=== PATIENT | male | born 1985 | race Asian ===

== ENCOUNTER 2018-06-14 11:12 | Inpatient (IN) | payer OTHER ==
[~2018-06-14] VITALS: Ht 170.2 cm; Wt 68.9 kg
[2018-06-14] VITALS (14 sets, daily range): BP systolic 98–123; BP diastolic 53–80
[2018-06-14] MEDS ORDERED: LORazepam 2MG/ML-1ML VIAL ONE ×2 (11:41→12:04)
[2018-06-14 12:01] LABS: Alanine Aminotransferase 64 U/L (16-61); Albumin 5.2 g/dL (3.4-5.0); Anion Gap 23 (5-15); Aspartate Aminotransferase 84 U/L (15-37); BUN/Creatinine Ratio 9.8; Blood Alcohol < 3.0 mg/dL (0-5); Blood Urea Nitrogen 31 mg/dL (7-18); Calcium 10.3 mg/dL (8.5-10.1); Carbon Dioxide 17 mmol/L (21-32); Chloride 100 mmol/L (98-107); GFR African American 29 mL/min; GFR Non-African American 24 mL/min; Glucose 179 mg/dL (74-106); Sodium 140 mmol/L (136-145)
[2018-06-14 12:03] LABS: Urine Bacteria NONE SEEN /hpf (None Seen); Urine Blood Negative /uL (Negative); Urine Specific Gravity 1.024 (1.001-1.035); Urine WBC 1 /hpf (0 - 3)
[2018-06-14 12:04] LABS: Alcohol, Urine < 3.0 mg/dL (0-5); Amphetamine Screen, Urine NEGATIVE (NEGATIVE); Barbiturate Scree,Urine NEGATIVE (NEGATIVE); Benzodiazephine Screen, Urine NEGATIVE (NEGATIVE); Cannabinoid Screen, Urine NEGATIVE (NEGATIVE); Cocaine Screen, Urine NEGATIVE (NEGATIVE); Opiate Scree,Urine NEGATIVE (NEGATIVE); Phencyclidine Screen, Urine NEGATIVE (NEGATIVE)
[2018-06-14 12:05] LABS: Alkaline Phosphatase 92 U/L (45-117); Bilirubin, Total 0.7 mg/dL (0.2-1.0); Creatine Kinase IFCC 962 U/L (39-308); Hematocrit 54.2 % (41.0-53.0); Hemoglobin 17.9 g/dL (13.5-17.5); Mean Corpuscular Hgb Conc. 33.1 g/dL (32.0-36.0); Mean Corpuscular Volume 90.6 fL (80.0-100.0); Platelet Count (auto) 223 10^3/uL (140-450); Red Blood Cells 5.98 10^6/uL (4.5-5.90); Red Cell Distribution Width 15.5 % (11.8-14.3); Total Protein 9.2 g/dL (6.4-8.2); White Blood Cell 25.1 10^3/uL (4.4-10.8)
[2018-06-14 12:09] LABS: Basophils % (manual) 0 (0.0-2.0); Blast Cells 0; Metamyelocytes % 0; Myelocytes % 0; Promyelocytes % 0; Reactive Lymphocytes 0
[2018-06-14 12:25] LABS: Potassium 6.3 mmol/L (3.5-5.1)
[2018-06-14 12:43] LABS: Salicylate < 1.7 mg/dL (2.8-20.0)
[2018-06-14 12:44] LABS: Acetaminophen < 2.0 ug/mL (10-30)
[2018-06-14] MEDS ORDERED: SODIUM CHLORIDE 0.9% 2,000 ML IV ONE (12:45)
[2018-06-14] MEDS ORDERED: D5W/SOD CHLO 0.9% 1,000 ML IV ONE (12:45)
[2018-06-14] MEDS ORDERED: InsuLIN REG 1unit/0.01ml Soln (100units/ml) IV ONE (12:45)
[2018-06-14] MEDS ORDERED: FUROSEMIDE 40 MG/4 ML VIAL IV ONE (12:45)
[2018-06-14] MEDS ORDERED: SODIUM BICARBONATE 8.4 % INJ 50ML VIAL IV ONE (12:45)
[2018-06-14 14:02] LABS: Band Neutrophils % (manual) 3; Eosinophils % (manual) 1 (0-7); Lymphocytes % (manual) 11 (10.0-50.0); Monocytes % (manual) 3 (0-12)
[2018-06-14] MEDS ORDERED: LORazepam 2MG/ML-1ML VIAL IV ONE ×5 (14:45)
[2018-06-14] MEDS ORDERED: SODIUM CHLORIDE 0.9% 1,000 ML IV ONE ×2 (14:45→16:45)
[2018-06-14] MEDS ORDERED: LORazepam 2MG/ML-1ML VIAL IV PRN (16:30)
[2018-06-14] MEDS ORDERED: cefTRIAXone 1GM/50ML D5W 50 ML IV ONE (16:30)
[2018-06-14] MEDS ORDERED: SODIUM CHLORIDE 0.9% 1,000 ML IV SCH (16:30)
[2018-06-14] MEDS ORDERED: NITROGLYCERIN 0.4 MG SL TAB SL PRN (16:30)
[2018-06-14] MEDS ORDERED: PROMETHAZINE HCL 25 MG/ML 1ML IV PRN (16:30)
[2018-06-14] MEDS ORDERED: MORPHINE SULFATE 4 MG/ML SYR/VIAL IV PRN ×3 (16:30)
[2018-06-14 17:27] LABS: Albumin 4.2 g/dL (3.4-5.0); BUN/Creatinine Ratio 11.2; Calcium 8.3 mg/dL (8.5-10.1); Potassium 3.1 mmol/L (3.5-5.1)
[2018-06-14 17:29] LABS: INR 1.52 (0.9-1.15); Partial Thromboplastin Time 27.7 sec (23.78-33.04); Prothrombin Time 15.9 sec (9.27-12.13)
[2018-06-14] MEDS ORDERED: SODIUM BICARBONATE 50ML VIAL 50 ML in D5W/SOD CHL 0.45% 1,000 ML IV SCH (17:30)
[2018-06-14 17:31] LABS: Bilirubin, Total 0.6 mg/dL (0.2-1.0); Total Protein 7.6 g/dL (6.4-8.2)
[2018-06-14 17:34] LABS: Amylase 586 U/L (25-115); Lipase 441 U/L (73-393)
[2018-06-14 19:14] LABS: Basophils # (auto) 0 uL; Basophils % (auto) 0.1 % (0.0-2.0); Eosinophils # (auto) 0 uL; Eosinophils % (auto) 0.1 % (0.0-7.0); Hematocrit 51.1 % (41.0-53.0); Hemoglobin 17.1 g/dL (13.5-17.5); Lymphocytes # (auto) 0.3 uL; Mean Corpuscular Hemoglobin 30.3 pg (28.0-32.0); Mean Corpuscular Hgb Conc. 33.5 g/dL (32.0-36.0); Mean Corpuscular Volume 90.3 fL (80.0-100.0); Monocytes # (auto) 2.1 uL; Neutrophils # (auto) 27.5 uL; Neutrophils % (auto) 91.8 % (37.0-80.0); Nucleated Red Blood Cells % 0.1 %; Platelet Count (auto) 99 10^3/uL (140-450); Red Blood Cells 5.65 10^6/uL (4.5-5.90); Red Cell Distribution Width 15.8 % (11.8-14.3)
[2018-06-14] MEDS: SOD CHL 0.9%/ KCL 20MEQ 1,000 ML IV SCH (22:23)
[2018-06-14] MEDS: LINEZOLID 600MG/300ML 300 ML IV SCH (22:53)
[2018-06-15] VITALS (78 sets, daily range): BP systolic 107–153; BP diastolic 45–117
[2018-06-15] MEDS: metroNIDAZOLE 500MG/100ML 100 ML IV SCH ×4 (00:58→22:14)
[2018-06-15] MEDS: PIPERACILLIN-TAZOB 2.25GM 50 ML IV SCH ×2 (02:44→07:49)
[2018-06-15] MEDS ORDERED: ACETYLCYSTEINE 200MG/ML IV SOL 10,200 MG in D5W 5% 250 ML IV ONE (04:00)
[2018-06-15] MEDS: SOD CHL 0.9%/ KCL 20MEQ 1,000 ML IV SCH ×2 (04:05→07:49)
[2018-06-15 04:09] LABS: Basophils # (auto) 0.1 uL; Basophils % (auto) 0.2 % (0.0-2.0); Eosinophils # (auto) 0 uL; Hematocrit 48.3 % (41.0-53.0); Hemoglobin 16.7 g/dL (13.5-17.5); Lymphocytes # (auto) 0.6 uL; Lymphocytes % (auto) 2.1 % (10.0-50.0); Mean Corpuscular Hemoglobin 30.4 pg (28.0-32.0); Mean Corpuscular Hgb Conc. 34.5 g/dL (32.0-36.0); Mean Corpuscular Volume 88.3 fL (80.0-100.0); Monocytes % (auto) 6.9 % (0.0-12.0); Neutrophils # (auto) 26.3 uL; Neutrophils % (auto) 90.8 % (37.0-80.0); Platelet Count (auto) 73 10^3/uL (140-450); Red Blood Cells 5.48 10^6/uL (4.5-5.90); Red Cell Distribution Width 15.7 % (11.8-14.3); White Blood Cell 28.9 10^3/uL (4.4-10.8)
[2018-06-15] MEDS ORDERED: ACETYLCYSTEINE 200MG/ML IV SOLN 30ML IV ONE ×3 (04:15→06:04)
[2018-06-15 04:26] LABS: Lactic Acid w/Reflex 2.3 mmol/L (0.4-2.0)
[2018-06-15 04:27] LABS: Albumin 3.8 g/dL (3.4-5.0); BUN/Creatinine Ratio 10.1; Calcium 7.8 mg/dL (8.5-10.1); Potassium 3.4 mmol/L (3.5-5.1)
[2018-06-15 04:30] LABS: Total Protein 6.7 g/dL (6.4-8.2)
[2018-06-15] MEDS ORDERED: ACETYLCYSTEINE 200MG/ML IV SOL 3,400 MG in D5W 5% 500 ML IV ONE (05:00)
[2018-06-15] MEDS ORDERED: cefTRIAXone 1GM/50ML D5W 50 ML IV SCH (09:00)
[2018-06-15] MEDS: LINEZOLID 600MG/300ML 300 ML IV SCH (09:00)
[2018-06-15] MEDS ORDERED: ACETYLCYSTEINE 200MG/ML IV SOL 6,800 MG in D5W 5% 1,000 ML IV ONE (09:00)
[2018-06-15] MEDS ORDERED: ENOXAPARIN SOD 30 MG/0.3 ML SYRINGE SC SCH (10:00)
[2018-06-15] MEDS ORDERED: POTASSIUM CHL 20MEQ/100ML 200 ML IV ONE (11:26)
[2018-06-15] MEDS: PANTOPRAZOLE 40 MG/10 ML VIAL IV SCH (11:51)
[2018-06-15] MEDS: D5W IV SCH ×3 (11:51→20:29)
[2018-06-15] MEDS: SODIUM BICARBONATE IV SCH ×3 (11:51→20:29)
[2018-06-15] MEDS: POTASSIUM CHLORIDE IV SCH ×3 (11:51→20:29)
[2018-06-15] MEDS ORDERED: VANCOMYCIN PER PHARMACY 0 MG IV SCH (12:15)
[2018-06-15] MEDS ORDERED: VANCOMYCIN 1GM/250ML 250 ML IV ONE (13:00)
[2018-06-15 23:07] LABS: BUN/Creatinine Ratio 7.3; Calcium 6.9 mg/dL (8.5-10.1); Potassium 3.4 mmol/L (3.5-5.1)
[2018-06-15] MEDS: POTASSIUM CHL 20 Meq TABLET PO SCH (23:47)
[2018-06-16] VITALS (39 sets, daily range): BP systolic 121–145; BP diastolic 67–98
[2018-06-16] MEDS: POTASSIUM CHL 20 Meq TABLET PO SCH ×2 (02:00→06:00)
[2018-06-16 02:52] LABS: INR 2.91 (0.9-1.15); Prothrombin Time 29.3 sec (9.27-12.13)
[2018-06-16 02:54] LABS: Albumin 2.6 g/dL (3.4-5.0); Anion Gap 14 (5-15); BUN/Creatinine Ratio 6.7; Blood Urea Nitrogen 35 mg/dL (7-18); Calcium 6.7 mg/dL (8.5-10.1); Carbon Dioxide 16 mmol/L (21-32); Chloride 110 mmol/L (98-107); GFR African American 17 mL/min; GFR Non-African American 14 mL/min; Glucose 131 mg/dL (74-106); Potassium 3.6 mmol/L (3.5-5.1); Sodium 140 mmol/L (136-145)
[2018-06-16 02:57] LABS: Alkaline Phosphatase 75 U/L (45-117); Bilirubin, Total 2.7 mg/dL (0.2-1.0); Total Protein 5.1 g/dL (6.4-8.2)
[2018-06-16 03:11] LABS: Alanine Aminotransferase 2137 U/L (16-61); Aspartate Aminotransferase 3161 U/L (15-37)
[2018-06-16] MEDS ORDERED: ACETYLCYSTEINE 200MG/ML IV SOLN 30ML IV ONE (03:18)
[2018-06-16] MEDS ORDERED: ACETYLCYSTEINE 200MG/ML IV SOL 6,800 MG in D5W 5% 1,000 ML IV SCH (03:30)
[2018-06-16] MEDS: D5W IV SCH (03:40)
[2018-06-16] MEDS: POTASSIUM CHLORIDE IV SCH (03:40)
[2018-06-16] MEDS: SODIUM BICARBONATE IV SCH (03:40)
[2018-06-16] MEDS: metroNIDAZOLE 500MG/100ML 100 ML IV SCH ×2 (05:37→14:27)
[2018-06-16 05:57] LABS: Basophils # (auto) 0 uL; Eosinophils # (auto) 0 uL; Hemoglobin 14.7 g/dL (13.5-17.5); Lymphocytes # (auto) 0.6 uL; Mean Corpuscular Hgb Conc. 34.5 g/dL (32.0-36.0)
[2018-06-16 05:59] LABS: Basophils % (auto) 0.1 % (0.0-2.0); Hematocrit 42.5 % (41.0-53.0); Lymphocytes % (auto) 2.7 % (10.0-50.0); Mean Corpuscular Hemoglobin 30.3 pg (28.0-32.0); Mean Corpuscular Volume 87.8 fL (80.0-100.0); Monocytes # (auto) 1.1 uL; Monocytes % (auto) 5.1 % (0.0-12.0); Neutrophils # (auto) 20.7 uL; Neutrophils % (auto) 92.1 % (37.0-80.0); Platelet Count (auto) 58 10^3/uL (140-450); Red Blood Cells 4.84 10^6/uL (4.5-5.90); Red Cell Distribution Width 15.3 % (11.8-14.3); White Blood Cell 22.5 10^3/uL (4.4-10.8)
[2018-06-16 06:24] LABS: Albumin 2.8 g/dL (3.4-5.0); Calcium 7.2 mg/dL (8.5-10.1); Potassium 3.7 mmol/L (3.5-5.1)
[2018-06-16 06:41] LABS: BUN/Creatinine Ratio 6.5; Bilirubin, Total 3.2 mg/dL (0.2-1.0); Total Protein 5.2 g/dL (6.4-8.2)
[2018-06-16 07:25] LABS: Magnesium 2.2 mg/dL (1.6-2.6); Phosphorus 3.1 mg/dL (2.5-4.90)
[2018-06-16 07:29] LABS: Lipase 1264 U/L (73-393)
[2018-06-16] MEDS ORDERED: LACTULOSE 20Gm/30ML SOLN PO ONE (09:15)
[2018-06-16 10:12] LABS: Calcium 7.3 mg/dL (8.5-10.1); Potassium 3.5 mmol/L (3.5-5.1)
[2018-06-16 10:19] LABS: Creatine Kinase IFCC > 40000 U/L (39-308)
[2018-06-16] MEDS ORDERED: SODIUM BICARBONATE 50ML VIAL 50 ML in D5W/SOD CHL 0.45% 1,000 ML IV SCH (10:45)
[2018-06-16] MEDS ORDERED: POTASSIUM CHL 20MEQ/100ML 100 ML IV SCH (10:45)
[2018-06-16] MEDS ORDERED: POTASSIUM CHL 20 Meq TABLET PO ONE (11:00)
[2018-06-16] MEDS: PANTOPRAZOLE 40 MG/10 ML VIAL IV SCH (11:08)
[2018-06-16 16:14] LABS: INR 3.07 (0.9-1.15); Prothrombin Time 30.8 sec (9.27-12.13)
[2018-06-16 16:16] LABS: Albumin 2.9 g/dL (3.4-5.0); Calcium 7.8 mg/dL (8.5-10.1); Potassium 3.8 mmol/L (3.5-5.1)
[2018-06-16 16:28] LABS: BUN/Creatinine Ratio 5.7; Bilirubin, Total 5.1 mg/dL (0.2-1.0); Total Protein 5.5 g/dL (6.4-8.2)
== END 2018-06-16 18:39 | disposition short-term general hospital (02) | DRG 917 ==
LOC: ER 11:16 → OVERFLOW 16:27 → ICU WEST 19:07
PROVIDERS: ADMIT Internal Medicine; ATTEND Family Medicine
DX: T43.691A Poisoning by other psychostimulants, accidental (unintentional), initial encounter (principal); A41.9 Sepsis, unspecified organism; R65.21 Severe sepsis with septic shock; G92 Toxic encephalopathy; K72.00 Acute and subacute hepatic failure without coma; K76.7 Hepatorenal syndrome; K85.90 Acute pancreatitis without necrosis or infection, unspecified; N17.0 Acute kidney failure with tubular necrosis; M62.82 Rhabdomyolysis; D69.6 Thrombocytopenia, unspecified; E87.5 Hyperkalemia; E87.6 Hypokalemia; F17.200 Nicotine dependence, unspecified, uncomplicated; Y92.89 Other specified places as the place of occurrence of the external cause; Z82.49 Family history of ischemic heart disease and other diseases of the circulatory system
CPT/HCPCS: 36415; 36600; 51702; 70450; 71045; 74176; 76775; 80048; 80053; 80202; 80307; 80320; 80329; 81001; 82140; 82150; 82550; 82805; 82962; 83605; 83615; 83690; 83735; 84100; 84443; 85007; 85025; 85027; 85610; 85652; 85730; 87040; 87045; 87081; 87086; 87493; 87899; 93005; 95819; 96361; 96374; 96375; 96376; 99291; C9113; G0378; J0696; J1815; J2543; J3480; J3490; J7042; J7060